=== PATIENT | male | born 1955 | race Caucasian/White ===

== ENCOUNTER → 2016-09-04 | Outpatient (REF) ==
[~2016-09-04] MED LIST: CHLO25TA PO; LISI30TA4 PO; MELO15TA4 PO; METF500T4 PO; PRAV40TA2 PO; TRAM37.53 PO
== END ==
LOC: M LAB LCGH 11:08
PROVIDERS: ATTEND Neurological Surgery
DX: Z00.00 Encounter for general adult medical examination without abnormal findings (principal)

== ENCOUNTER → 2016-09-09 | Outpatient (CLI) | payer BC ==
--- NOTE | 2016-09-09 14:32 | REP ---
CT LUMBAR SPINE WITHOUT CONTRAST: 09/09/2016 COMPARISON: 05/03/2016 MRI. CLINICAL HISTORY: Back pain, spondylosis and myelopathy lumbar region. TECHNIQUE: Axial soft tissue and bone window settings from the mid aspect of T11 through S2 with both coronal and sagittal reconstructions. FINDINGS: Normal lordosis is maintained. There is vacuum phenomenon at the L4-5 level without significant disc space narrowing. There is a few millimeters of retrolisthesis of L5 on S1. There is no spondylolysis or other spondylolisthesis. Vertebral body heights are intact. There is no compression deformity. Small marginal osteophytes from L3-4 through L5, S1 and also at T11-12. There is facet arthropathy at L3-4 and L5-S1, greater at L4-5. Visualized SI joints and sacral ala with foramina in the upper sacrum are unremarkable. Portions of the lower most ribs included are unremarkable. In the deep sulci the lung misrty, there is no evidence of an effusion, infiltrate or atelectasis. The aorta is without aneurysm or calcifications. The aorta and iliac vessels with no periaortic or other retroperitoneal adenopathy visible on this study. Paraspinal musculature symmetric and unremarkable. The axial images show T11-12 with a small calcified disc bulge centrally without significant spinal stenosis. There is no foraminal stenosis at T12-L1 and L1-2. There is no spinal or foraminal stenosis. At L2-3, there is disc bulge with the cross-sectional area of the canal adequate and no central or foraminal stenosis at L3-4 central canal stenosis due to combined factors of disc bulge, ligamentum flavum hypertrophy and facet arthritis with borderline foramina. At L4-5, posterior osteophytic ridging, broad-based disc bulge, extensive ligamentum and facet hypertrophy cause moderately severe to severe spinal stenosis with lateral recess stenosis and foraminal encroachment, left greater than right. At L5-S1, broad-based disc bulge with ligamentum flavum and facet hypertrophy on the right side greater than left with the cross-sectional area of the canal borderline. There is a foraminal encroachment, left greater than right. IMPRESSION: 1. Multilevel degenerative disc disease and facet arthritis with central canal stenosis and foraminal encroachment, most severe L4-5, less severe L3-4 and least at L5-S1. The other levels are without significant finding Signed by Phillip Moon MD 09/09/2016 02:35 P
--- NOTE | 2016-09-10 01:37 | REP ---
Clinical: Spondylosis. Technique: AP, lateral, flexion/extension, bilateral oblique, and open-mouth views. Findings: Straightening of normal lordosis may be secondary to positioning versus pain/spasm. Alignment is maintained. There is no evidence for acute fracture / compression injury or subluxation. Moderate to advanced multilevel degenerative changes include bridging osteophytes, endplate sclerosis and disc space narrowing. Oblique views demonstrate hypertrophic changes to the uncinate processes with narrowing of the neural foramen at multiple levels. Open mouth view demonstrates normal C1-C2 articulation and odontoid process. Impression: Moderate to early advanced multilevel degenerative changes. Signed by Mark Winchester MD 09/10/2016 01:29 A
--- NOTE | 2016-09-10 01:45 | REP ---
Clinical: Spondylosis . Technique: AP, lateral, flexion/extension, bilateral oblique, and coned-down views. Findings: Alignment and lordosis is relatively well maintained. The vertebral bodies including transverse process and spinous processes are intact and without acute fracture / compression injury or subluxation. No evidence for spondylolysis or spondylolisthesis. Hypertrophic facet changes are appreciated along with subtle anterior spurring and endplate sclerosis primarily involving the L4-5 and L5-L1 levels. Impression: Age-related changes suggested as described above. Signed by Mark Winchester MD 09/10/2016 01:37 A
== END ==
LOC: M RAD 12:33 → M LAB 12:33
PROVIDERS: ATTEND Neurological Surgery
DX: M47.16 Other spondylosis with myelopathy, lumbar region (principal); M47.892 Other spondylosis, cervical region; M51.36 Other intervertebral disc degeneration, lumbar region; M50.30 Other cervical disc degeneration, unspecified cervical region

== ENCOUNTER 2016-09-18 08:03 | Day surgery (SDC) | payer BC ==
[~2016-09-18] VITALS: Ht 180.3 cm; Wt 149.8 kg
[2016-09-18] MEDS ORDERED: LR 1,000 ML IV SCH ×2 (08:15→17:30)
[2016-09-18] MEDS ORDERED: REMIFENTANIL 1MG 3ML VIAL As Ordered ONE ×5 (08:57→13:55)
[2016-09-18] MEDS ORDERED: fentaNYL 250 MCG/5 ML INJECTION (J3010) As Ordered ONE (08:58)
[2016-09-18] MEDS ORDERED: PROPOFOL 200 MG/20 ML VIAL As Ordered ONE ×2 (08:58→11:06)
[2016-09-18] MEDS ORDERED: LIDOCAINE 2% INJ 100 MG/5 ML SDV (FOR ANES.) As Ordered ONE (08:58)
[2016-09-18] MEDS ORDERED: ROCURONIUM BROMIDE 50 MG/5 ML VIAL As Ordered ONE ×2 (08:58→12:33)
[2016-09-18] MEDS ORDERED: MIDAZOLAM INJ 2 MG/2 ML VIAL (J2250) As Ordered ONE (08:58)
[2016-09-18] MEDS ORDERED: dexameTHASONE 4 MG/ML 1ML VIAL (J1100) IV ONE (09:00)
[2016-09-18] MEDS ORDERED: CEFUROXIME SODIUM 1.5 GM in D5W MINI-BAG PLUS 50 ML IV ONE (09:00)
[2016-09-18] MEDS ORDERED: THROMBIN SOLN 20,000 UNITS KIT As Ordered ONE (09:19)
[2016-09-18] MEDS ORDERED: BACITRACIN PWD 50,000 UNITS VIAL As Ordered ONE (09:20)
[2016-09-18] MEDS ORDERED: methylPREDNISolone SUSP 40 MG/ML (DEPO-medrol) VIAL (J1030) As Ordered ONE (09:20)
[2016-09-18] MEDS ORDERED: dexameTHASONE 4 MG/ML 1ML VIAL (J1100) As Ordered ONE (10:13)
[2016-09-18] MEDS ORDERED: THROMBIN SOLN 20,000 UNITS KIT XX ONE (10:48)
[2016-09-18] MEDS ORDERED: BACITRACIN PWD 50,000 UNITS VIAL XX ONE (10:48)
[2016-09-18] MEDS ORDERED: methylPREDNISolone SUSP 40 MG/ML (DEPO-medrol) VIAL (J1030) XX ONE (10:48)
[2016-09-18] MEDS ORDERED: PROPOFOL 500 MG/50 ML VIAL As Ordered ONE ×6 (11:06→15:01)
[2016-09-18] MEDS ORDERED: PHENYLEPHRINE INJ 10MG/ML VIAL (J2370) As Ordered ONE (11:32)
[2016-09-18] MEDS ORDERED: HYDROmorphone HCL 2 MG/ML 1ML VIAL (J1170) As Ordered ONE (14:32)
[2016-09-18] MEDS ORDERED: ONDANSETRON 4MG/2ML VIAL (J2405) As Ordered ONE (14:34)
--- NOTE | 2016-09-18 16:09 | REP ---
LUMBAR SPINE, FIVE VIEWS: HISTORY: Spondylosis. Five portable AP and lateral radiographs were obtained. A metal probe is present overlying the neural arch at the L5-S1 level. The sixth image demonstrates a metal probe at the L4-5 level. Fluoro time: 19 seconds. Signed by Aurelio Summers MD 09/19/2016 09:59 A
[2016-09-18] MEDS ORDERED: fentaNYL 100 MCG/2 ML INJECTION (J3010) As Ordered ONE (16:35)
[2016-09-18] MEDS ORDERED: ceFAZolin SOD 1 GM in D5W MINI-BAG PLUS 50 ML IV SCH (17:00)
[2016-09-18] MEDS ORDERED: DEXTROSE 50% 50 ML SYRINGE IV PRN (17:30)
[2016-09-18] MEDS ORDERED: GLUCOSE 4 GM CHEW TABLET PO PRN (17:30)
[2016-09-18] MEDS ORDERED: fentaNYL 100 MCG/2 ML INJECTION (J3010) IV PRN (17:30)
[2016-09-18] MEDS ORDERED: ONDANSETRON 4MG/2ML VIAL (J2405) IV PRN ×2 (17:30→17:45)
[2016-09-18] MEDS ORDERED: GLUCAGON FOR INJ 1 MG VIAL (J1610) SC PRN (17:30)
[2016-09-18] MEDS ORDERED: HYDROmorphone HCL 1 MG/ML SYRINGE (J1170) IV PRN (17:30)
--- NOTE | 2016-09-18 17:36 | CR.PDOC ---
[facility] Consultation Consultation DATE OF CONSULTATION: Sep 18, 2016 at 08:03 PRIMARY CARE PHYSICIAN: REFERRING PROVIDER: Dr. Alvarez ATTENDING PHYSICIAN: Dr. Brittani Mckeon REASON FOR CONSULTATION/CHIEF COMPLAINT: s/p laminectomy; medical co- management. HISTORY OF PRESENT ILLNESS: This is a 61-year-old male past medical history of questionable DC, diabetes widest, hypertension, hyperlipidemia, severe obstructive sleep apnea on CPAP, lumbar spinal stenosis who is now status post L4-L5 laminectomy by Dr. Templeton. Patient denies any chest pain/shortness breath/palpations. Patient denies nausea /vomiting/abdominal pain. Patient states he does have a 6 out of 10 pain in his lumbar region at this time post surgery. Denies any other complaints. No lower extremity weakness. No urinary incontinence. ALLERGIES: Please see below. HOME MEDICATIONS: Please see below. PAST MEDICAL HISTORY: As per HPI PAST SURGICAL HISTORY: Colonoscopy FAMILY HISTORY: Diabetes, hypertension, COPD SOCIAL HISTORY: History of tobacco abuse 35 years. No alcohol is drug use. REVIEW OF SYSTEMS: HEENT: Denies sore throat/headache CARDIOVASCULAR: Denies chest pain/palpitations RESPIRATORY: No shortness of breath/cough GASTROINTESTINAL: denies nausea/vomiting GENITOURINARY: Denies dysuria/urinary urgency. MUSCULOSKELETAL: Denies myalgias/arthralgias NEUROLOGICAL: Denies any focal weakness Rest of ROS negative. PHYSICAL EXAMINATION: Vitals: (see below) General: No acute distress, laying comfortably in bed. HEENT: Moist mucous membranes. Neck: No JVD or lymphadenopathy Cardiac: RRR, No murmurs Pulm: Clear to auscultation b/l. No wheezing, rhonchi Abd: NT/ND + BS. Morbidly obese. Ext: No edema or cyanosis. Strength 5 out of 5 bilateral lower extremity is. DTR 2+ bilateral knees. Babinski negative bilaterally. Lumbar region: Surgical area clean, dry. No bleeding or significant swelling noted. LABORATORY DATA: CBC, BMP, magnesium level Pending ASSESSMENT/PLAN: 1. Postop day 0 status post L4-5 laminectomy. Management, as well as pain control/DVT prophy by Dr. Templeton. 2. Severe objective sleep apnea- reviewed the notes from Dr. Manzanares that is in the chart. Patient is to be on CPAP at 8 cm H20. 3. Diabetes mellitus- we'll hold by mouth meds for now. Sliding scale insulin. 4. Hypertension- will repeat BMP to monitor renal function before restarting lisinopril. 5. Hyperlipidemia- continue statin 6. Questionable history of DC- recently cleared by his telegraph office telephone clerk for surgery. EF within normal limits. Patient was followed by Dr. Rios starting 09/19/2016. Vital Signs/I&O Vital Signs Date Time Temp Pulse Resp B/P Pulse Ox O2 Delivery O2 Flow Rate FiO2 09/18/16 09:00 98.3 90 18 123/91 98 Room Air Laboratory Data Labs 24H Laboratory Tests 2 09/18/16 08:44: Bedside Glucose (Misc Panel) 110 FSBS Laboratory Tests Test 09/18/16 08:44 Range/Units Bedside Glucose (Misc Panel) 110 80-115 MG/DL Allergies Coded Allergies: No Known Drug Allergy (Verified Allergy, Unknown, 07/25/16) Home Medications Scheduled Chlorthalidone (Chlorthalidone) 25 Mg Tab 25 MG PO DAILY (Reported) Lisinopril (Lisinopril) 30 Mg Tab 30 MG PO DAILY (Reported) Metformin Hydrochloride (Metformin HCl ER) 500 Mg Tab 1,000 MG PO QHS (Reported ) Pravastatin Sod (Pravastatin Sodium) 40 Mg Tab 40 MG PO DAILY (Reported) Scheduled PRN Meloxicam (Meloxicam) 15 Mg Tab 15 MG PO DAILY PRN PRN PAIN (Reported) Tramadol/Apap (Tramadol Hydrochloride/AC 37.5-325 mg) 1 Tab Tab 1 TAB PO QIDP PRN PRN PAIN (Reported) 1-2 tabs as needed BRITTANI MCKEON MD Sep 18, 2016 17:36
[2016-09-18 17:44] LABS: MEAN CORPUSCULAR HEMOGLOBIN 28.4 pg (27.0-33.0); MEAN CORPUSCULAR HGB CONC 33.3 g/dl (32.0-36.5); MEAN CORPUSCULAR VOLUME 85.3 fl (80.0-96.0); RED CELL DISTRIBUTION WIDTH 12.9 % (11.5-14.5); WHITE BLOOD COUNT 11.5 K/mm3 (4.0-10.0)
[2016-09-18] MEDS ORDERED: ACETAMINOPHEN TAB 650MG DOSE (2X325MG) PO PRN (17:45)
[2016-09-18 18:03] LABS: ALBUMIN 3.6 GM/DL (3.2-5.2); ALBUMIN/GLOBULIN RATIO 1.03 (1.00-1.93); BILIRUBIN,TOTAL 0.5 MG/DL (0.2-1.0); CALCIUM LEVEL 8.7 MG/DL (8.8-10.2); CREATININE FOR GFR 1.42 MG/DL (0.70-1.30); MAGNESIUM LEVEL 1.5 MG/DL (1.8-2.4); POTASSIUM SERUM 4.2 MEQ/L (3.5-5.1); TOTAL PROTEIN 7.1 GM/DL (6.4-8.2)
[2016-09-18 19:00] VITALS: BP 160/82
[2016-09-18 20:00] VITALS: BP 148/74
[2016-09-18] MEDS: ceFAZolin SOD 1 GM in D5W MINI-BAG PLUS 50 ML IV SCH (20:29)
[2016-09-18] MEDS: KCL 20MEQ IN D5/0.45NS 1000ML 1,000 ML IV SCH (20:30)
[2016-09-18] MEDS: MORPHINE 2 MG/ML 1ML SYRINGE IV PRN (20:31)
[2016-09-18] MEDS: HumaLOG INSULIN (NovoLOG) PER UNIT SC SCH (20:33)
[2016-09-18 21:00] VITALS: BP_SYST 140; BP_SYST 155; BP_DIAS 91; BP_DIAS 93
[2016-09-18 22:00] VITALS: BP 140/91
[2016-09-18] MEDS: NORCO, ANEXSIA 5/325MG TABLET (HYDROcodone/ACETAMINOPHEN) PO PRN (22:26)
[2016-09-18 23:00] VITALS: BP 143/77
[2016-09-18 23:59] VITALS: BP 152/86
[2016-09-19] MEDS ORDERED: NORCO, ANEXSIA 5/325MG TABLET (HYDROcodone/ACETAMINOPHEN) PO SCH
[2016-09-19] MEDS: KCL 20MEQ IN D5/0.45NS 1000ML 1,000 ML IV SCH (01:50)
[2016-09-19] MEDS: ceFAZolin SOD 1 GM in D5W MINI-BAG PLUS 50 ML IV SCH ×2 (03:19→08:49)
[2016-09-19] MEDS: NORCO, ANEXSIA 5/325MG TABLET (HYDROcodone/ACETAMINOPHEN) PO PRN ×4 (04:18→19:56)
[2016-09-19 04:36] VITALS: BP 134/75
[2016-09-19 05:26] LABS: MEAN CORPUSCULAR HEMOGLOBIN 28.2 pg (27.0-33.0); MEAN CORPUSCULAR VOLUME 85.5 fl (80.0-96.0); RED CELL DISTRIBUTION WIDTH 13.4 % (11.5-14.5); WHITE BLOOD COUNT 13.2 K/mm3 (4.0-10.0)
[2016-09-19] MEDS: MORPHINE 2 MG/ML 1ML SYRINGE IV PRN (05:27)
[2016-09-19 05:31] LABS: CALCIUM LEVEL 8.6 MG/DL (8.8-10.2); CREATININE FOR GFR 1.35 MG/DL (0.70-1.30); GLOMERULAR FILTRATION RATE 57.2 (>49); POTASSIUM SERUM 4.2 MEQ/L (3.5-5.1)
[2016-09-19 08:00] VITALS: BP 142/77
[2016-09-19 08:48] VITALS: BP 142/77
[2016-09-19] MEDS: HumaLOG INSULIN (NovoLOG) PER UNIT SC SCH ×4 (08:49→20:01)
[2016-09-19] MEDS ORDERED: LISINOPRIL 10 MG TAB PO SCH (09:00)
[2016-09-19] MEDS ORDERED: CHLORTHALIDONE 25 MG TAB PO SCH (09:00)
[2016-09-19] MEDS ORDERED: KEFL500C7 PO (09:26)
[2016-09-19 12:00] VITALS: BP 137/76
--- NOTE | 2016-09-19 15:41 | RO ---
DATE OF PROCEDURE: 09/18/2016 PREOPERATIVE DIAGNOSES: Lumbar spondylosis with radiculopathy and neurogenic claudication. Multiple comorbidities including morbid obesity. POSTOPERATIVE DIAGNOSES: Lumbar spondylosis with radiculopathy and neurogenic claudication. Multiple comorbidities including morbid obesity. PROCEDURE: Decompression left L4-5 with sisi-semi laminectomies, partial facetectomies and foraminotomies, and partial facet rhizotomies at L3-L4, L4-L5, and L5-S1 on the left. SURGEON: Dr. Ivory Templeton PSYCH TECH: None. ANESTHESIA: General. Procedure performed with neurologic monitoring. FINDINGS: Please see my office notes for detailed preoperative evaluation and discussions. Also, please see my preoperative note. Patient was seen with his in the preoperative area. Patient and his were aware of all options, risk, scope, expected outcome, sequelae, and complications of the surgery. Once again, a detailed preoperative conference was held. Patient and his were aware of the salvage nature of the procedure and also were aware that he is extremely high risk candidate for any type of surgery and that the risk of surgery includes, but is not limited to, , coma, spinal fluid leakage, meningitis, persistence or worsening of symptoms and/or any deficits, pulmonary embolism (PE), myocardial infarction (AL), and/or any catastrophic sequelae. Patient was cleared by his irrigation equipment mechanic, his trade mark examiner, and primary care physician. All After all matters pertaining to surgery, anesthesia, and followup care had been discussed with him previously and again today, he was taken to the operating room at his and his 's request. Patient and his claimed there is no way he could live with this pain anymore and he is willing to take any or all risk for any possible benefit. He claimed his pain is unbearable and unlivable. DESCRIPTION OF PROCEDURE: Once in the operating room, general endotracheal anesthesia was given and cervical collar was immobilized and neurologic monitoring was begun on account of his cervical myelopathy and myelomalacia, for which he has been noncompliant and does not want any workup or treatment in that matter despite repeated requests. Fiberoptic intubation was requested with the anesthesia service. Once general endotracheal anesthesia was given, patient was then positioned on the Yoni frame with extreme difficulty on account of his morbid obesity. After adequate prep and drape, a C-arm was used to identify the midline as all surface anatomical landmarks were obscured from his morbid obesity. After adequate prep and drape, a skin incision was given centering over the interspinous space of L4-L5. Patient's exploration was limited on account of his morbid obesity and lack of instruments which could be used to expose his lumbar spine and the site of interest. Thus, the incision was enlarged and lumbodorsal fascia was opened further, both cephalad and caudally. Paraspinal muscles were from midline structures and held apart with the help of self-retaining retractors with some difficulty once again on account of his morbid obesity. Sacrum was visualized; thus, L4-L5 interspace was identified, though both of these were also identified with perioperative x-rays. Using a high-speed air drill and multiple sizes of rongeurs, generous sisi-semi laminectomy was performed, as well as partial facetectomies were done. There was severe canal retrolisthesis and subarticular stenosis from the spondylotic changes. Decompression was carried out to the region of the S1 nerve root and in between the pedicles to make more room for the exiting L4 nerve root. Complete decompression of the traversing L5 nerve root was also achieved. There was a bulging disc, which was hard and firm and was left in situ. Complete decompression of the thecal sac and the above nerve roots seemed to have taken place. At this time, the wound was closed in anatomic layers and patient tolerated the procedure well and was transferred in stable condition to the recovery room. Operative findings were discussed with the patient's in the waiting room.
[2016-09-19 15:53] VITALS: BP 146/71
[2016-09-19 20:26] VITALS: BP 146/71
--- NOTE | 2016-09-19 20:57 | DSES ---
DATE OF ADMISSION: 09/18/2016 DATE OF DISCHARGE: 09/19/2016 FINAL DIAGNOSIS: Lumbar spondylosis with radiculopathy and neurogenic claudication. PROCEDURE: Decompression left L4-L5 with partial facetectomies, foraminotomies, partial facet rhizotomies at L3-L4, L4-L5 and L5-S1 on the left. HOSPITAL COURSE: The patient was admitted for intractable and relentless low back and left leg pain. Please see my office notes and presurgical notes for details. The patient underwent the above procedure uneventfully. Postoperatively, he had no symptoms and on the day of discharge, he was pacing in his room and anxious to be discharged. He denied any symptoms and had no preoperative deficits. He was anxious to go home and resume his employment, and I have cautioned him and his family that he needs to be compliant and he was aware of the risks, sequela and perils of not being compliant. The operative findings were shared with him and with his family again, and he had all followup instructions. Fax Copy to Dr. Templeton: [phone]
[2016-09-19] MEDS ORDERED: metFORMIN XR 500MG TAB *GLUCOPHAGE XR PO SCH (21:00)
[2016-09-19] MEDS ORDERED: CIPR-250 PO (22:44)
[2016-09-19] MEDS ORDERED: TYLE325T5 PO (22:50)
[2016-09-19] MEDS ORDERED: NORC5TAB PO (22:59)
== END 2016-09-19 23:29 | disposition home or self-care (01) ==
LOC: M SDC 08:03 → EDSTATUS 09:45 → M PCU 19:30 → M SDC 09-19 23:29
PROVIDERS: ATTEND Neurological Surgery
DX: M47.26 Other spondylosis with radiculopathy, lumbar region (principal); E66.01 Morbid (severe) obesity due to excess calories; I10 Essential (primary) hypertension; G47.33 Obstructive sleep apnea (adult) (pediatric); E11.9 Type 2 diabetes mellitus without complications; Z87.891 Personal history of nicotine dependence; E78.4 Other hyperlipidemia; Z79.899 Other long term (current) drug therapy
CPT/HCPCS: 36415; 63030; 63190; 72110; 80048; 80053; 83735; 85027; 96374; 96375; 96376; J0690; J0697; J1030; J1100; J1170; J2250; J2370; J2405; J3010